=== PATIENT | male | born 1985 | race Caucasian/White ===

== ENCOUNTER 2017-02-01 09:58 | Day surgery (SDC) | payer MEDICAID ==
[~2017-02-01 09:58] MED LIST: DECADRON ONE; DILAUDID ONE; DIPRIVAN 10 MG/ML IV ONE; XYLOCAINE MPF 2% ONE; ZOFRAN ONE
[2017-02-01] MEDS ORDERED: PEPCID PO NR (10:00)
[2017-02-01] MEDS ORDERED: VERSED IV NR (10:00)
[2017-02-01] MEDS ORDERED: ANCEF/STERILE WATER 2 GM/20 ML IV NR (10:00)
[2017-02-01] MEDS ORDERED: NACL 0.9% 1000 ML 1,000 ML IV SCH (10:00)
[2017-02-01] MEDS ORDERED: NACL BACTERIOSTATIC INFILTRATI ONE (10:25)
[2017-02-01] MEDS ORDERED: ZOFRAN IV PRN (11:07)
--- NOTE | 2017-02-01 11:07 | Anesthesia Consultation ---
Anesthesia Consult and Med Hx Date of service: 02/01/17 - Airway Anesthetic Teeth Evaluation: Good ROM Head & Neck: Adequate Mental/Hyoid Distance: Adequate Mallampati Class: Class II Intubation Access Assessment: Probably Good - Pulmonary Exam CTA: Yes - Cardiac Exam Cardiac Exam: RRR - Pre-Operative Health Status ASA Pre-Surgery Classification: ASA2 Proposed Anesthetic Plan: General - Pulmonary Hx Smoking: Yes ([employer]) - Cardiovascular System Hx Hypertension: No Hx Coronary Artery Disease: No - Gastrointestinal Hx Ulcer: Yes (5 YRS AGO) - Endocrine Hx Renal Disease: No (stones) Hx Cirrhosis: No Hx Non-Insulin Dependent Diabetes: No Hx Hypothyroidism: No - Other Systems Hx Cancer: No Hx Obesity: No - Additional Comments Anesthesia Medical History Comments: WOKE UP VIOLENTLY AFTER EGD
--- NOTE | 2017-02-01 11:07 | Anesthesia Day of Surgery ---
Anesthesia Day of Surgery - Day of Surgery Patient Examined: Yes Patient H&P Reviewed: Yes Patient is NPO: Yes
[2017-02-01] MEDS ORDERED: DILAUDID IV NR (11:09)
[2017-02-01] MEDS ORDERED: SUBLIMAZE ONE (12:16)
[2017-02-01] MEDS ORDERED: DIPRIVAN 10 MG/ML IV ONE (12:16)
[2017-02-01] MEDS ORDERED: DECADRON ONE (12:17)
[2017-02-01] MEDS ORDERED: XYLOCAINE MPF 2% ONE (12:17)
[2017-02-01] MEDS ORDERED: ZOFRAN ONE (12:17)
[2017-02-01] MEDS ORDERED: WATER FOR IRRIG STERILE IR ONE (12:30)
[2017-02-01] MEDS ORDERED: OMNIPAQUE (300 MG) IR ONE (12:30)
--- NOTE | 2017-02-01 12:30 | Short Stay Summary ---
Short Stay Documentation Date of service: 02/01/17 - History H&P: obtained from office - Allergies and Medications Current Medications: Allergies No Known Allergies Allergy (Unverified 02/01/17 08:36) Home Medications Medication Instructions Recorded Confirmed Last Taken Type Lisdexamfetamine Dimesylate 50 mg PO DAILY 02/01/17 02/01/17 01/31/17 History [Vyvanse] Omeprazole [Omeprazole] 40 mg PO DAILY 02/01/17 02/01/17 01/31/17 History Ondansetron [Zofran TAB] 4 mg PO Q8HR PRN 02/01/17 02/01/17 01/31/17 History Oxycodone HCl/Acetaminophen 1 each PO Q4-6H 02/01/17 02/01/17 01/31/17 History [Percocet 10/325 mg] Sertraline [Zoloft] 50 mg PO QDAY 02/01/17 02/01/17 01/31/17 History Active Medications Cefazolin Sodium (Ancef/Sterile Water 2 Gm/20 Ml) 2 gm IV PREOP NR Stop: 02/01/17 23:59 Famotidine (Pepcid) 20 mg PO PREOP NR Stop: 02/01/17 23:59 Last Admin: 02/01/17 10:43 Dose: 20 mg Hydromorphone HCl (Dilaudid) 0.5 mg IV Q10MIN PRN PRN Reason: Pain , Severe (7-10) Stop: 02/01/17 18:00 Hydromorphone HCl (Dilaudid) 0.5 mg IV ONCE NR Stop: 02/01/17 16:00 Last Admin: 02/01/17 11:15 Dose: 0.5 mg Sodium Chloride (Nacl 0.9% 1000 Ml) 1,000 mls @ 75 mls/hr IV DIRECT HUDSON Last Admin: 02/01/17 10:30 Dose: 75 mls/hr Midazolam HCl (Versed) 2 mg IV PREOP NR Stop: 02/01/17 23:59 Last Admin: 02/01/17 11:10 Dose: 2 mg Ondansetron HCl (Zofran) 4 mg IV ONCE PRN PRN Reason: Nausea And Vomiting Stop: 02/01/17 18:00 - Brief post op/procedure progress note Date of procedure: 02/01/17 Pre-op diagnosis: rt ureteral stone Post-op diagnosis: same Procedure: cysto, ureteroscopy, stent Anesthesia: MARYA Surgeon: VINH JACOBO Estimated blood loss: minimal Condition: stable - Hospital course Hospital course: cipro, percocet , & post op info on chart - Disposition Condition at discharge: Stable Disposition: DC-01 TO HOME OR SELFCARE Short Stay Discharge Plan Follow up with: PRIMARY CARE, [Primary Care Provider] - 7 Days
[2017-02-01] MEDS ORDERED: ePHEDrine SULFATE ONE (12:42)
[2017-02-01] MEDS ORDERED: DILAUDID ONE (12:55)
[2017-02-01] MEDS: DILAUDID IV PRN ×6 (13:25→14:40)
--- NOTE | 2017-02-01 13:39 | Fluoroscopy Report ---
X-ray pyelogram: The initial images show no obvious urinary tract calculus. Injection of contrast into the left ureter demonstrates an unremarkable ureter and intrarenal collecting system. Injection of the right demonstrate normal distal ureter to the lower SI junction but there is no contrast above that level. On the contrasted image there is a questionable calculus adjacent to the lower margin of L4 not seen initially. A ureteroscope was passed with wire extending into the renal pelvis. An internal stent was left in place. According to the technology information a ureteral stone was removed.
[2017-02-01] MEDS ORDERED: NORCO 5/325 ONE (13:45)
[2017-02-01] MEDS ORDERED: NORCO 5/325 PO ONE (14:00)
[2017-02-01] MEDS ORDERED: TORADOL IV PRN (14:19)
[2017-02-01 16:03] VITALS: BP 114/71
--- NOTE | 2017-02-01 16:10 | Operative Report ---
PREOPERATIVE DIAGNOSIS: Right mid ureteral stone, 4 mm. POSTOPERATIVE DIAGNOSIS: Right mid ureteral stone, 4 mm. PROCEDURES: Cystoscopy, bilateral retrograde pyelograms, right rigid ureteroscopy, basket stone extraction, and double-J stent (6-Slovenian 26 cm with an external string). SURGEON: Sreedhar Sykes MD ANESTHESIA: General. ESTIMATED BLOOD LOSS: Minimal. FLUIDS: Crystalloid. COMPLICATIONS: No complications. INDICATIONS: This patient is a 31-year-old gentleman seen in the office for right flank pain. CT of abdomen and pelvis revealed a 4 mm mid ureteral stone. I discussed the options. He wanted conservative therapy; however, he called the office, pain was worse, agreed to proceed with surgical intervention. DESCRIPTION OF PROCEDURE: The patient was taken to the operative suite, placed in a supine position. After adequate general anesthesia, placed in a dorsal lithotomy position, prepped and draped in a sterile fashion. Pancystourethroscopy was performed with 22-Slovenian Storz cystoscope, no acute bladder pathology. Bilateral retrograde pyelograms obtained with an 8-Slovenian Ronnie catheter and 8 mL of contrast. No filling defects or obstruction on the right. On the left side, small filling defect in the mid ureter. A two 0.035 Glidewires were placed in the right collecting system. Rigid ureteroscopy up to the kidney. The stone could be appreciated. It was engaged with a 3-Slovenian Neela basket and extracted. A 6 Slovenian 26 cm double-J stent with an external string was left indwelling. He was extubated. Rectal exam was benign. He was taken to recovery room in stable condition. He will go home on Cipro and Percocet, and follow up in the office. JOB# [id number] [facility]
== END 2017-02-01 09:59 | disposition home or self-care (01) ==
LOC: OR 09:58
PROVIDERS: ATTEND Urology
DX: N20.1 Calculus of ureter (principal); I10 Essential (primary) hypertension; F17.290 Nicotine dependence, other tobacco product, uncomplicated; Z98.84 Bariatric surgery status; Z98.890 Other specified postprocedural states; Z87.19 Personal history of other diseases of the digestive system; Z84.1 Family history of disorders of kidney and ureter; Z82.49 Family history of ischemic heart disease and other diseases of the circulatory system
CPT/HCPCS: 52332; 52352; 74420; A4217; C1758; C1769; C2617; J0690; J1100; J1170; J1885; J2250; J2405; J2704; J3010; J7030; Q9967

== ENCOUNTER 2019-03-06 06:38 | Day surgery (SDC) | payer MEDICAID ==
[2019-03-06] MEDS ORDERED: PANTOPRAZOLE 40 MG INJ IV SCH (07:37)
[2019-03-06] MEDS ORDERED: FAMOTIDINE 20 MG/2 ML INJ IV ONE (08:00)
[2019-03-06] MEDS ORDERED: SODIUM CHLORIDE 0.9% 1000 ML 1,000 ML IV SCH (08:00)
[2019-03-06] MEDS ORDERED: SODIUM CHLORIDE P/F VIAL 10 ML 10 ML ONE (08:10)
[2019-03-06] MEDS ORDERED: WATER FOR IRRIG STERILE 250 ML BOTTLE IR ONE (09:10)
[2019-03-06] MEDS ORDERED: WATER FOR IRRIG STERILE 1,000 ML BOTTLE ONE (09:11)
--- NOTE | 2019-03-06 09:23 | Anesthesia Consultation ---
Anesthesia Consult and Med Hx Date of service: 03/06/19 - Airway Anesthetic Teeth Evaluation: Good ROM Head & Neck: Adequate Mental/Hyoid Distance: Adequate Mallampati Class: Class I Intubation Access Assessment: Good - Pulmonary Exam CTA: Yes - Cardiac Exam Cardiac Exam: RRR - Pre-Operative Health Status ASA Pre-Surgery Classification: ASA2 Proposed Anesthetic Plan: MAC - Pre-Anesthesia Comment Pre-Anesthesia Comments: HIV- Positive - Pulmonary Hx Smoking: Yes - Cardiovascular System Hx Hypertension: No Hx Coronary Artery Disease: No - Central Nervous System Hx Seizures: No - Gastrointestinal Hx Ulcer: Yes (5 YRS AGO) Hx Gastroesophageal Reflux Disease: Yes - Endocrine Hx Renal Disease: No Hx Non-Insulin Dependent Diabetes: No Hx Hypothyroidism: No - Other Systems Hx Substance Use: No Hx Cancer: No Hx Obesity: No - Additional Comments Anesthesia Medical History Comments: Combative in emergence of anesthesia
--- NOTE | 2019-03-06 09:24 | Anesthesia Day of Surgery ---
Anesthesia Day of Surgery - Day of Surgery Patient Examined: Yes Patient H&P Reviewed: Yes Patient is NPO: Yes
[2019-03-06] MEDS ORDERED: PROPOFOL 200 MG/20 ML VIAL IV ONE (09:28)
[2019-03-06] MEDS ORDERED: fentaNYL 100 MCG/2 ML INJ ONE (09:28)
--- NOTE | 2019-03-06 09:51 | Procedure Note ---
Date of procedure: 03/06/19 Pre-op diagnosis: Dyspepsia Post-op diagnosis: other (Mild,Distal Erosive Esophagitis/Gastritis/S/P Bilroth 2/ R/O Celiac Disease/R/O Eosinophilic Esophagitis) Procedure: EGD with Biopsy Anesthesia: MAC Surgeon: ARNEL GREER Estimated blood loss: minimal Pathology: list Specimen disposition: to lab Condition: stable Disposition: same day (Treat with PPI. Check labs (Vitamin B12,Folate and Ferritin), avoid aspirin and NSAID for 4 days, otherwise resume home medication and follow up in 1 to 2 weeks ([phone]).)
--- NOTE | 2019-03-06 10:23 | Operative Report ---
PROCEDURE: Esophagogastroduodenoscopy with biopsy. INDICATIONS: A 33-year-old gentleman, who had morbid obesity for which he had a gastric bypass done several years ago Billroth II with loss of more than 100 pounds of weight. He also has a history of HIV 1, which is well controlled with undetectable viral load with present medication that he is on. He has lately been having some dyspeptic symptoms. EGD was done to rule out for any associated peptic ulcer disease or erosive esophagitis. DESCRIPTION OF PROCEDURE: The procedure was done after getting informed consent with MAC anesthesia. Instrument was passed through the hypopharynx into the esophagus, which showed some mild distal erosive esophagitis. There was no evidence of any Kennedi esophagitis. Biopsy was done from the midesophagus to rule out for eosinophilic esophagitis. There was a small gastric remnant present and the patient had evidence of Billroth II. Biopsy was done from the small gastric remnant to rule out for H. pylori and both from the afferent and the efferent loop of the Billroth II to assess for possible associated celiac disease. ASSESSMENT: There is no peptic ulcer disease noted. There was minimal bleeding from the biopsy sites. No complications associated with the procedure. The procedure was done in the GI lab with assistance of the GI lab team, which included RN, Jazz Balbuena as well as a Juice jimenez and with assistance of Anesthesia. ASSESSMENT: Dyspepsia, status post gastric bypass with Billroth II, mild distal esophagitis, gastritis, rule out eosinophilic esophagitis, rule out celiac disease. There is minimal bleeding from the biopsy sites. No complications associated with the procedure. PLAN: To have the patient avoid aspirin and aspirin-related products and to treat the patient with PPI, vitamin B12, folate and ferritin levels will also be checked. JOB# [id number] [facility]
[2019-03-06 11:46] VITALS: BP 101/66
--- NOTE | 2019-03-06 23:11 | Post Anesthesia Evaluation ---
- Post Anesthesia Evaluation Patient Participated: Yes Airway Patent: Yes Stable Respiratory Function: Yes Nausea/Vomiting: No Temp > 96.8F: Yes Pain Manageable: Yes Adequeate Hydration: Yes Anesthesia Complications: No Block Receding Appropriately: Not Applicable Patient on Ventilator: No
== END 2019-03-06 06:39 | disposition home or self-care (01) ==
LOC: GIO 06:38
DX: K29.50 Unspecified chronic gastritis without bleeding (principal); K31.89 Other diseases of stomach and duodenum; K27.9 Peptic ulcer, site unspecified, unspecified as acute or chronic, without hemorrhage or perforation; K21.9 Gastro-esophageal reflux disease without esophagitis; R63.4 Abnormal weight loss; F17.210 Nicotine dependence, cigarettes, uncomplicated; Z98.84 Bariatric surgery status; Z87.442 Personal history of urinary calculi; Z79.899 Other long term (current) drug therapy; Z98.890 Other specified postprocedural states
CPT/HCPCS: 36415; 43239; 82607; 82728; 82747; 88305; 88342; C9113; J2704; J3010; J7030